=== PATIENT | male | born 1965 | race Two or more races ===

== ENCOUNTER 2024-08-24 00:45 | Emergency (ER) | payer MEDICAID ==
[~2024-08-24] VITALS: Ht 185.4 cm; Wt 95.3 kg
[2024-08-24 00:59] VITALS: TEMP 98.6
[2024-08-24 01:32] LABS: BASOPHILS # (AUTO) 0.1 K/uL (0.0-0.2); BASOPHILS % (AUTO) 0.9 % (0.0-2.0); EOSINOPHILS # (AUTO) 0.1 K/uL (0.0-0.7); EOSINOPHILS % (AUTO) 1.4 % (0.0-6.0); HEMATOCRIT 39 % (39-51); HEMOGLOBIN 13.1 g/dL (13.5-17.5); LYMPHOCYTES # (AUTO) 2.1 K/uL (0.8-4.8); MEAN CORPUSCULAR HEMOGLOBIN 34 PG (26.0-33.0); MEAN CORPUSCULAR HGB CONC 34 g/dl (31.0-36.0); MEAN CORPUSCULAR VOLUME 99 fL (80-96); MONOCYTES # (AUTO) 0.7 K/uL (0.1-1.30); MONOCYTES % (AUTO) 11.1 % (2.0-12.0); NEUTROPHILS # (AUTO) 3.7 K/uL (1.8-8.9); NEUTROPHILS % (AUTO) 55.6 % (43.0-81.0); PLATELET COUNT (AUTO) 147 K/uL (150-450); RED BLOOD CELL COUNT(AUTO) 3.91 MIL/uL (4.5-6.0); RED CELL DISTRIBUTION WIDTH 15.8 % (11.5-15.0); WHITE BLOOD COUNT (AUTO) 6.7 K/uL (4.3-11.0)
[2024-08-24] MEDS ORDERED: ASPIRIN 325 MG TABLET ONE (01:37)
[2024-08-24] MEDS: ASPIRIN 325 MG TABLET PO ONE (01:39)
[2024-08-24 01:42] LABS: CALCIUM, SERUM 9.1 mg/dL (8.5-10.1); CARBON DIOXIDE 26 mmol/L (21-32); CHLORIDE 103 mmol/L (98-107); CREATININE 0.8 mg/dL (0.6-1.3); GLUCOSE 99 mg/dL (74-106); POTASSIUM 3.7 mmol/L (3.5-5.1); SODIUM SERUM 138 mmol/L (136-145); UREA NITROGEN, BLOOD 11 mg/dL (7-18)
[2024-08-24 01:50] LABS: ALANINE AMINOTRANSFERASE 36 U/L (12-78); ALBUMIN 3.7 g/dL (3.4-5.0); ALKALINE PHOSPHATASE 67 U/L (46-116); ASPARTATE AMINOTRANSFERASE 36 U/L (15-37); BILIRUBIN,DIRECT 0.2 mg/dL (0.0-0.2); BILIRUBIN,TOTAL 0.6 mg/dL (0.2-1.0); INR 1.15 (0.91-1.10); PARTIAL THROMBOPLASTIN TIME 27.5 SEC (24.3-34.3); PROTHROMBIN TIME 12.1 SECS (9.2-11.1); TOTAL PROTEIN, SERUM 7.3 g/dL (6.4-8.2)
[2024-08-24] MEDS ORDERED: NITROGLYCERIN 0.4 MG/TAB BOTTLE ONE (02:35)
[2024-08-24] MEDS: NITROGLYCERIN 0.4 MG/TAB BOTTLE SL ONE (02:38)
[2024-08-24] MEDS ORDERED: CEFTRIAXONE 1GM BAG (ER ONLY) 50 ML IV ONE (04:06)
[2024-08-24] MEDS ORDERED: AZITHROMYCIN 500 MG VIAL ONE (04:06)
[2024-08-24] MEDS: CEFTRIAXONE 1GM BAG (ER ONLY) 1 GM/50 ML PIGGYBACK IV ONE (04:12)
[2024-08-24] MEDS: AZITHROMYCIN 500 MG in IV D5W 250 ML IV ONE (04:22)
[2024-08-24 06:00] VITALS: BP 120/76; O2SAT 96
== END 2024-08-24 10:35 | disposition short-term general hospital (02) ==
LOC: ER 00:47
DX: R07.89 Other chest pain (principal); J18.9 Pneumonia, unspecified organism; I48.91 Unspecified atrial fibrillation; I10 Essential (primary) hypertension; E78.00 Pure hypercholesterolemia, unspecified; F17.210 Nicotine dependence, cigarettes, uncomplicated; R79.89 Other specified abnormal findings of blood chemistry; Z90.89 Acquired absence of other organs; Z20.822 Contact with and (suspected) exposure to COVID-19
CPT/HCPCS: 99291; 96365; 96367; 99406; 87426; 93005; 71045; 85025; 80048; 80076; 36415; 84484 ×2; 85730; J0456; J0696; J7060

== ENCOUNTER 2025-04-21 21:51 | Inpatient (IN) | payer MEDICAID ==
[~2025-04-21] VITALS: Ht 185.4 cm; Wt 95.4 kg
[2025-04-21 22:24] LABS: PLATELET COUNT (AUTO) 148 K/uL (150-450); RED BLOOD CELL COUNT(AUTO) 3.91 MIL/uL (4.5-6.0); RED CELL DISTRIBUTION WIDTH 13.5 % (11.5-15.0); WHITE BLOOD COUNT (AUTO) 8.0 K/uL (4.3-11.0)
[2025-04-21 22:30] LABS: CALCIUM, SERUM 8.2 mg/dL (8.5-10.1); CREATININE 0.9 mg/dL (0.6-1.3); SODIUM SERUM 139 mmol/L (136-145); UREA NITROGEN, BLOOD 13 mg/dL (7-18)
[2025-04-21 22:36] LABS: ASPARTATE AMINOTRANSFERASE 40 U/L (15-37); TOTAL PROTEIN, SERUM 7.5 g/dL (6.4-8.2)
[2025-04-21] MEDS ORDERED: DILTIAZEM HCL 50 MG IV ONE (22:41)
[2025-04-21] MEDS ORDERED: IOHEXOL-300 100 ML VIAL IV ONE (22:47)
[2025-04-21] MEDS ORDERED: IV NS 0.9% 250 ML IV ONE (22:47)
[2025-04-21] MEDS ORDERED: CT SWABBABLE VALVE TRANS SET 1 EA INFUS.SET MC ONE (22:47)
[2025-04-21 22:50] LABS: NT-PRO BNP 1234.0 pg/mL (0-125)
[2025-04-21 22:51] LABS: INR 1.12 (0.91-1.10)
[2025-04-21] MEDS: DILTIAZEM HCL 50 MG IV IV ONE (22:54)
[2025-04-21] MEDS ORDERED: PANTOPRAZOLE 40 MG VIAL ONE ×2 (23:06→23:12)
[2025-04-21] MEDS: PANTOPRAZOLE 80 MG in IV NS 0.9% 100 ML IV ONE (23:17)
[2025-04-22] MEDS: DILTIAZEM HCL IV 125 MG in IV NS 0.9% 100 ML IV PRN ×2 (00:15→02:05)
[2025-04-22] MEDS: FUROSEMIDE 20 MG/2 ML VIAL IV ONE (00:27)
[2025-04-22] MEDS ORDERED: FUROSEMIDE 20 MG/2 ML VIAL ONE (00:28)
[2025-04-22 00:32] LABS: OCCULT BLOOD STOOL NEGATIVE (NEGATIVE)
[2025-04-22] MEDS ORDERED: APIX5TAB PO (01:53)
[2025-04-22] MEDS ORDERED: ATOR40TA PO (01:53)
[2025-04-22] MEDS ORDERED: DILTIAZEM HCL 25 MG IV ONE (01:53)
[2025-04-22] MEDS ORDERED: METO25TA6 PO (01:53)
[2025-04-22] MEDS ORDERED: TRAZ-257 PO (01:53)
[2025-04-22] MEDS ORDERED: DIGO125T PO (01:53)
[2025-04-22] MEDS ORDERED: DILT-1 PO (01:53)
[2025-04-22] MEDS ORDERED: ASPI-1169 PO (01:53)
[2025-04-22] MEDS ORDERED: METO50TA16 PO (01:53)
[2025-04-22] MEDS ORDERED: RANO500T6 PO (01:53)
[2025-04-22] MEDS ORDERED: ACETAMINOPHEN 325 MG TABLET PO PRN (02:30)
[2025-04-22 02:54] LABS: EOSINOPHILS % (MANUAL) 1 % (0-4); LYMPHOCYTES % (MANUAL) 31 % (16-48); MONOCYTES % (MANUAL) 12 % (0-11.0); NEUTROPHILS % (MANUAL) 56 (42-76); PLATELET ESTIMATE DECREASED
[2025-04-22 03:30] VITALS: BP 103/81; TEMP 97.5; O2SAT 98
[2025-04-22 04:00] VITALS: BP 110/82; TEMP 97.5; O2SAT 98
[2025-04-22] MEDS: IV 1/2NS 1000 ML 1,000 ML IV PRN (04:09)
[2025-04-22] MEDS: DIGOXIN 0.125 MG TABLET PO SCH (04:39)
[2025-04-22] MEDS: DILTIAZEM HCL CD 120 MG PO SCH (04:40)
[2025-04-22] MEDS: METOPROLOL TARTRATE 50 MG TABLET PO SCH (04:40)
[2025-04-22 08:00] VITALS: BP 121/80; TEMP 97.9; O2SAT 99
[2025-04-22] MEDS: RANOLAZINE 500 MG TAB.ER.12H PO SCH (08:42)
[2025-04-22] MEDS: PANTOPRAZOLE 40 MG TABLET.DR PO SCH (08:43)
[2025-04-22] MEDS ORDERED: PANT40TA2 PO (08:56)
[2025-04-22 12:00] VITALS: BP 120/80; TEMP 97.9; O2SAT 99
[2025-04-22] MEDS ORDERED: ATORVASTATIN 40 MG TABLET PO SCH (18:00)
[2025-04-22] MEDS ORDERED: TRAZODONE 50 MG TABLET PO SCH (18:00)
== END 2025-04-22 15:03 | disposition home or self-care (01) | DRG 241 ==
LOC: ER 21:53 → TELE1 04-22 02:24
PROVIDERS: ADMIT Internal Medicine; ATTEND Internal Medicine
DX: K29.70 Gastritis, unspecified, without bleeding (principal); E89.0 Postprocedural hypothyroidism; Z79.01 Long term (current) use of anticoagulants; I10 Essential (primary) hypertension; K21.9 Gastro-esophageal reflux disease without esophagitis; I25.10 Atherosclerotic heart disease of native coronary artery without angina pectoris; Z95.1 Presence of aortocoronary bypass graft; I48.91 Unspecified atrial fibrillation; T45.516A Underdosing of anticoagulants, initial encounter; Z91.138 Patient's unintentional underdosing of medication regimen for other reason; Y92.89 Other specified places as the place of occurrence of the external cause; Z79.899 Other long term (current) drug therapy; F17.210 Nicotine dependence, cigarettes, uncomplicated
CPT/HCPCS: 36415; 71045-TC; 80048-TC; 80076-TC; 82272-TC; 83690-TC; 83735-TC; 83880; 84484-TC; 85027-TC; 85730-TC; 86850-TC; 93307-TC; A4223; G0378; J1938; J2470; J3490; J7030; J7050; Q9967